=== PATIENT | male | born 1960 | race Caucasian/White ===

== ENCOUNTER → 2019-11-17 13:45 | Outpatient (CLI) | payer OTHER, SELFPAY ==
--- NOTE | 2019-11-17 | DI.RAD.S_ITS ---
PROCEDURE: XR LUMBAR SPINE 2-3V INDICATIONS: Other intervertebral disc degeneration, lumbar region TECHNIQUE: 3 views of the lumbar spine were acquired. COMPARISON: None. FINDINGS: Bones: 5 [id number] vertebrae are present. There is grade I L3 on L4 retrolisthesis and L4 on L5 anterolisthesis. Mild degenerative changes are present including osteophytosis, disc space narrowing, and facet sclerosis. No compression deformities. No suspicious bony lesions. Soft tissues: Overlying bowel gas pattern is normal. No suspicious soft tissue calcifications. IMPRESSION: Spondylolisthesis and mild degenerative change. Dictated by: Mellissa Jackson M.D. on 11/17/2019 at 16:49 Approved by: Mellissa Jackson M.D. on 11/17/2019 at 16:50
== END ==
PROVIDERS: Referring Provider Chiropractor; Visit Provider Chiropractor
DX: M51.36 Other intervertebral disc degeneration, lumbar region (principal); M43.16 Spondylolisthesis, lumbar region; M47.816 Spondylosis without myelopathy or radiculopathy, lumbar region
CPT/HCPCS: 72100

== ENCOUNTER → 2019-12-26 15:07 | Outpatient (CLI) | payer OTHER, MEDICAID, SELFPAY ==
[2019-12-26 16:20] LABS: BUN Creatinine Ratio 18.1 (6-22); Blood Urea Nitrogen 13 mg/dL (9-20); Calcium 9.7 mg/dL (8.4-10.2); Carbon Dioxide 28 mmol/L (22-32); Chloride 104 mmol/L (98-107); Cholesterol 168 mg/dL (140-199); Estimated Glomerular Filt Rate > 60.0 mL/min (>60); Glucose 101 mg/dL (70-100); HDL Cholesterol 40 mg/dL (40-60); HEMOLYSIS < 15 (0-50); LDL Cholesterol Calculated 71 mg/dL (<100); Potassium 4.3 mmol/L (3.4-5.1); Sodium 138 mmol/L (137-145); Triglycerides 285 mg/dL (35-150)
[2019-12-26 16:53] LABS: Prostate Specific Antigen Scrn 1.62 ng/mL (0.1-4.0)
== END ==
PROVIDERS: PCP Student in an Organized Health Care Education/Training Program; Referring Provider Student in an Organized Health Care Education/Training Program; Visit Provider Student in an Organized Health Care Education/Training Program
DX: Z13.220 Encounter for screening for lipoid disorders (principal); Z79.1 Long term (current) use of non-steroidal anti-inflammatories (NSAID); Z12.5 Encounter for screening for malignant neoplasm of prostate
CPT/HCPCS: 36415; 80048; 80061; G0103

== ENCOUNTER → 2020-02-20 15:14 | Outpatient (CLI) | payer OTHER, MEDICAID, SELFPAY ==
[2020-02-22 08:27] LABS: COVID19 Sendout Not Detected (Not Detect)
== END ==
PROVIDERS: PCP Student in an Organized Health Care Education/Training Program; Visit Provider Physician Assistant
DX: Z11.59 Encounter for screening for other viral diseases (principal)
CPT/HCPCS: 87635

== ENCOUNTER 2020-02-23 13:59 | Day surgery (SDC) | payer OTHER, MEDICAID, SELFPAY ==
--- NOTE | 2020-02-23 | PATH_ITS ---
[facility] Accession Number: [id number] . 01 Material submitted: . colon - CECAL POLYP . 01 Clinical history: . SDC . 02 Diagnosis: Cecum, Polyp, Biopsy: Sessile serrated adenoma. MRV 02/27/2020 1042 Local . 02 Electronically signed: . Lissy Colon MD, Pathologist NPI- [id number] . 01 Gross description: . CECAL POLYP: Received in formalin are 2 fragment(s) of turcios, soft tissue measuring 0.1 x 0.1 x 0.1 cm to 0.3 x 0.2 x 0.2 cm submitted entirely in 1 cassette(s) /ROSIO 02/24/2020 0144 Local . 02 Pathologist provided ICD-10: D12.0 . 02 CPT . 181195 Specimen Comment: A duplicate report has been generated due to demographic updates. Performed at: 01 [facility] [address] [facility], [place], [place] [id number] MD Timothy Garcia MD Phone: [phone] Performed at: 02 [facility] [address] [place], [place] [id number] MD Lissy Colon MD Phone: [phone]
[2020-02-23 14:37] VITALS: BP 127/84; PULSE 76; RESP 16; TEMP 36.6; O2SAT 95; BMI 25.5
[2020-02-23] MEDS: LACTATED RINGERS 1,000 ML 200 ML IV (14:45)
--- NOTE | 2020-02-23 15:10 | PM.HP.1 ---
History of Present Illness History of Present Illness Date Patient Seen: 02/23/20 Time Patient Seen: 15:10 Chief complaint: ARC Narrative: The patient presents for colorectal sreening. They have never had any previous examination for such. No personal or family history of colon cancer. On further history denies any recent gastrointestinal symptoms. No nausea, vomiting, abdominal pain, loss of appetite, unexplained weight loss, change in bowel habits, diarrhea, constipation, melena, hematochezia, or bright red blood per rectum. Patient History Medical History Allergies (Chronic ~1969) Chicken pox (Resolved ~1967) Chronic back pain (Chronic ~2019) Facet arthropathy, lumbar (Acute) Fractures (Resolved ~1974) Hearing loss (Chronic) Hemorrhoid (Inactive ~1989) Kidney stones (Inactive ~1989) Migraines (Inactive ~1979) Mumps (Resolved ~1967) Spondylolisthesis at L4-L5 level (Acute) Tinnitus (Chronic ~1989) Vision disorder (Chronic) Surgical History Anesthesia (Resolved) History of oral surgery (Resolved ~1999) History of tonsillectomy and adenoidectomy (Resolved ~1969) Family & Social History Family History Father Cancer Grandfather Cancer Grandfather Diabetes mellitus Grandmother Cancer Social History: household members other Tobacco & Substance use: Tobacco type cigarettes Smoking Status Current every day smoker alcohol intake current alcohol intake frequency a few times a week Substance Use Type does not use Meds Home Medications and Allergies Home Medications Medication Instructions Recorded Confirmed Type mometasone 0.1 % topical cream 1 applictn TOP DAILY #45 gram 12/30/19 02/23/20 Rx sildenafil (pulm.hypertension) 20 20 mg PO BEDTIME PRN #30 tab 12/30/19 02/23/20 Rx mg tablet varenicline 1 mg tablet 1 mg PO BID 84 Days #84 tab 02/10/20 02/23/20 Rx cyclobenzaprine 10 mg tablet 10 mg PO BID PRN #60 tab 02/13/20 02/23/20 Rx celecoxib 200 mg capsule 200 mg PO DAILY #30 cap 02/17/20 02/23/20 Rx Allergies Allergy/AdvReac Type Severity Reaction Status Date / Time No Known Drug Allergies Allergy Verified 02/23/20 14:36 Review of Systems Review of Systems Narrative: A 10 point review of systems is negative except as noted in the HPI Exam Vital Signs (past 8 hours): - 02/23/20 14:37 Temperature 97.8 F Pulse Rate 76 Respiratory Rate 16 Blood Pressure 127/84 Pulse Oximetry 95 Oxygen Delivery Method Room Air Narrative Exam Narrative: General-no acute distress, well nourished adult male HEENT-moist mucous membranes, no scleral icterus Neck-supple, no lymphadenopathy Chest- non labored respirations, clear to auscultation bilaterally Cardiac-regular rate no peripheral edema Abdomen-soft, nontender, non distended Extremities-warm, well perfused Neurological-alert and oriented, no focal deficits Assessment & Plan Assessment and plan (1) Screening for colon cancer: Status: Acute Assessment & Plan narrative: The patient requires colorectal screening and colonoscopy is recommended. Technical details were discussed. Risks, benefits, alternatives explained. Risks including but not limited to myocardial infarction, aspiration, bleeding, pain, missed lesion, incomplete examination, need for further radiographic studies, colonic perforation, and need for major abdominal surgery were discussed. All questions were answered to their satisfaction, and they are in agreement with this plan.
[2020-02-23] MEDS: MIDAZOLAM 5 MG/5 ML VIAL IV (15:22)
[2020-02-23] MEDS: fentaNYL 250 MCG/5 ML INJ IV (15:28)
--- NOTE | 2020-02-23 15:42 | PM.OP.ENDO ---
Operative Date/Time/Diagnoses Date of procedure: 02/23/20 Time of procedure: 15:42 Pre-op diagnosis: Screening colonoscopy Post-op diagnosis: same Procedure & Clinicians Study performed: Colonoscopy Same procedure as scheduled: Yes Indications: 59-year-old male no prior colonoscopy here for routine screening Surgeon: Fredy Qureshi Procedure Notes SCOAP/Timeout: Performed Procedure in detail: Patient placed in left lateral recumbent position. Time out was performed. Procedural sedation was administered with Versed and Fentanyl. Examination began with a thorough inspection of the perianal area there was no evidence of fissures, fistulae, external hemorrhoids or cutaneous malignancy, there is a benign appearing skin tack. The colonoscopy scope was then placed into the rectum the the lumen was insufflated with air. The scope was carefully advanced forward. Ultimately the cecum was intubated and confirmed by identification of the ileocecal valve, the appendiceal orifice and the confluence of the taenia. The scope was then slowly withdrawn examining colon thoroughly in all directions. In the rectum the rectal columns were identified and retroflexion of the scope was performed for inspection of the distal rectum and anal canal. The colonoscopy was notable for the followin. Quality of the preparation-good 2. One benign-appearing polyp less than 1 cm removed in its entirety from the cecum with biopsy forceps hemostasis observed 3. Sigmoid diverticulosis Scope withdrawal time: 9 Sedation minutes: 24 Findings: diverticulosis and polyp Specimen(s): none sent (cecal polyp) Impression: polyp Post-procedure Recommendations: Colonscopy in 5 years Disposition: same day surgery
[2020-02-23 15:43] VITALS: BP 131/84; PULSE 88; RESP 15; TEMP 36.6; O2SAT 95
[2020-02-23 15:48] VITALS: BP 132/93; PULSE 89; RESP 13; O2SAT 96
[2020-02-23 15:53] VITALS: BP 120/84; PULSE 81; RESP 20; O2SAT 96
[2020-02-23 15:57] VITALS: BP 130/95; PULSE 81; RESP 20; TEMP 36.9; O2SAT 96
--- NOTE | 2020-02-23 16:05 | SUR.PHASEII ---
Pt brought over to phase 2 sitting up in bed reading his post op directions, VSS, drinking fluids without problems, denies pain or nausea and states he understands all dc instructions. Attempted to call his friend for ride home but no answer message left
[2020-02-23 16:20] VITALS: BP 128/79; PULSE 76; RESP 16; TEMP 36.6; O2SAT 97
--- NOTE | 2020-02-23 17:00 | SUR.PHASEII ---
Pt dressed and ready to go but still waiting on ride. Ambulating well gait steady, iv out by emilee arvizu and site clear. Taken via [place] out to vending machines and couple things bought to eat by pt. Sitting back in bed eating and drinking waiting for ride.
--- NOTE | 2020-02-23 17:55 | SUR.PHASEII ---
1745-Pt dcd in stable condition to curbside with all d cinstrctions and all belongings and in good spirits
== END 2020-02-23 17:45 | disposition home or self-care (01) ==
PROVIDERS: PCP Student in an Organized Health Care Education/Training Program; Referring Provider Surgery; Visit Provider Surgery
PROC: 0DJD8ZZ Inspection of Lower Intestinal Tract, Via Natural or Artificial Opening Endoscopic (ICD-10-PCS; CPT 45378; principal; 2020-02-23 15:15)
DX: Z12.11 Encounter for screening for malignant neoplasm of colon (principal); K57.30 Diverticulosis of large intestine without perforation or abscess without bleeding; D12.0 Benign neoplasm of cecum
CPT/HCPCS: 45380; 99152; 99153; J2250; J3010

== ENCOUNTER → 2020-03-31 08:01 | Outpatient (CLI) | payer OTHER, MEDICAID, SELFPAY ==
--- NOTE | 2020-03-31 08:02 | DI.MRI.S_ITS ---
PROCEDURE: MR LUMBAR SPINE WO CON INDICATIONS: L3/4 SPONDYLOLISTHESIS TECHNIQUE: Noncontrast sagittal T1 spin echo and T2 fast echo, sagittal STIR, axial T1 and T2 fast spin echo through the lumbar spine. In cases with scoliosis, additional coronal T2 fast spin echo may be performed. COMPARISON: [facility], CR, XR LUMBAR SPINE 2-3V, 11/17/2019, 13:51. FINDINGS: Image quality: Excellent. Alignment and Curvature: Mild degenerative anterolisthesis of L4 on L5 measures 6 mm. The other vertebral bodies are normally aligned. Bone Marrow: Marrow is of normal overall signal. No acute vertebral body compression fractures. Spinal Cord: Conus medullaris terminates at the L1-L2 level. Visualized cord demonstrates normal signal and size. Paraspinous Soft Tissues: No paravertebral masses. T12-L1: No canal stenosis or foraminal stenosis. L1-L2: Mild disc bulge. No canal stenosis or foraminal stenosis. L2-L3: Disc bulge. Mild facet hypertrophy. No canal stenosis or foraminal stenosis. L3-L4: Moderate disc height loss. Disc bulge. Facet and ligament hypertrophy. Mild canal stenosis. Moderate bilateral foraminal stenosis with flattening deformity on the exiting bilateral L3 nerve roots. L4-L5: Severe multifactorial canal stenosis secondary to anterolisthesis of L4 on L5, moderately large diffuse posterior disc bulge, and prominent facet and ligament hypertrophy. There is a medially directed facet joint cyst off the right facet which contributes to the canal stenosis. Moderate bilateral foraminal narrowing with flattening deformity on the exiting bilateral L4 nerve roots. L5-S1: Diffuse disc bulge. Mild canal stenosis. Bilateral facet joint hypertrophy. Moderate left foraminal narrowing with mild flattening deformity on the exiting left L5 nerve root. IMPRESSION: 1. Findings are most significant at L4-L5. There is severe multifactorial canal stenosis. There is also moderate bilateral foraminal narrowing. 2. At L3-L4, there is mild canal stenosis and moderate bilateral foraminal stenosis. 3. At L5-S1 there is mild canal stenosis and moderate left foraminal stenosis. Dictated by: Wilber Thornton M.D. on 04/02/2020 at 8:31 Approved by: Wilber Thornton M.D. on 04/02/2020 at 8:37
== END ==
PROVIDERS: PCP Student in an Organized Health Care Education/Training Program; Referring Provider Physical Medicine & Rehabilitation; Visit Provider Physical Medicine & Rehabilitation
DX: M43.16 Spondylolisthesis, lumbar region (principal); M48.061 Spinal stenosis, lumbar region without neurogenic claudication; M48.07 Spinal stenosis, lumbosacral region
CPT/HCPCS: 72148

== ENCOUNTER → 2020-06-04 13:19 | Outpatient (CLI) | payer OTHER, MEDICAID, SELFPAY ==
[2020-06-04 15:13] LABS: COVID19 -Nasal RAPID Negative (Negative)
== END ==
PROVIDERS: PCP Student in an Organized Health Care Education/Training Program; Visit Provider Physical Medicine & Rehabilitation
DX: Z01.812 Encounter for preprocedural laboratory examination (principal); Z20.822 Contact with and (suspected) exposure to COVID-19
CPT/HCPCS: 87635; C9803

== ENCOUNTER 2020-06-05 12:28 | Outpatient (CLI) | payer OTHER, MEDICAID, SELFPAY ==
[2020-06-05] VITALS (8 sets, daily range): BP systolic 131–151; BP diastolic 60–97; PULSE 82–98; RESP 16–22; TEMP 36.6; O2SAT 97–100
--- NOTE | 2020-06-05 12:30 | DI.RAD.S_ITS ---
PROCEDURE: PAIN L INTERLAMINAR/CAUDAL INJ INDICATIONS: SPONDYLOSIS COMPARISON: [facility], CR, XR LUMBAR SPINE 2-3V, 11/17/2019, 13:51. [facility], MR, MR LUMBAR SPINE WO CON, 03/31/2020, 8:06. FINDINGS: Fluoroscopic spot filming was performed to verify placement of a spinal needle at the L4-L5 level, as labeled on the films. Appropriate location of the needle tip was confirmed by injection of iodinated contrast. IMPRESSION: Intraprocedural examination within normal limits. Dictated by: Neeraj Browning M.D. on 06/05/2020 at 13:24 Approved by: Neeraj Browning M.D. on 06/05/2020 at 13:25
[2020-06-05] MEDS: fentaNYL 100 MCG/2 ML INJ 50 MCG IV (13:16)
[2020-06-05] MEDS: MIDAZOLAM 5 MG/5 ML VIAL IV (13:16)
[2020-06-05] MEDS: BETAMETHASONE 30 MG/5 ML MDV 6 MG INJ (13:21)
[2020-06-05] MEDS: IOPAMIDOL 15 ML VIAL 3 ML INJ (13:21)
[2020-06-05] MEDS: BUPIVACAINE 0.25% (PF) VIAL 2 ML INJ (13:21)
[2020-06-05] MEDS: DEXAMETHASONE 10 MG/ML VIAL 20 MG INJ (13:22)
--- NOTE | 2020-06-05 13:26 | P.PCN_ITS ---
Date/Time/Diagnoses Date of procedure: 06/05/20 Time of procedure: 13:27 Pre-procedure diagnosis: 1. HNP WITH RADICULAR FEATURES, 2. MULTILEVEL CENTRAL STENOSIS, Post-procedure diagnosis: same Procedure Notes Procedure: 1. FLUOROSCOPICALLY GUIDED CONTRAST CONTROLLED INTERLAMINAR EPIDURAL STEROID INJECTION -L4/5 Indications: Chan is referred by Dr. Zacarias for treatment of Bilateral Foraminal Stenosis R>L LE symptoms. Physician: Cooper Peter Total Fluoroscopy time (seconds): 5 Total sedation minutes: 7 Complications: none Procedure in detail & Post-procedure care: FINDINGS Multilevel Central Spinal Stenosis with Nerve Root Compression DESCRIPTION OF PROCEDURE Fluoroscopically guided, contrast-controlled L4/5 translaminar epidural steroid injection. Following review of allergy and review of potential side effects and complications, including, but not necessarily limited to, infection, allergic reaction, local tissue breakdown, temporary as well as permanent nerve injury, paralysis, stroke and possible , the patient indicated that the patient understood and agreed to proceed. An informed consent document was signed by the patient, witnessed by a nurse, and placed in the patient's chart. Additionally, other treatment options including modalities, medications, and physical therapy were reviewed with the patient. After review of previous anaesthesic history and IV conscious sedation the patient was deemed safe to proceed with today?s procedure with IV conscious sedation as ASA class II designation. Safety time-out was performed to confirm patient ID, procedure to be performed and site of procedure. IV sedation was accomplished with a combination of 2mg of Versed and 50mcg of Fentanyl was administered by the RN after DO order, titrated to patient comfort during the course of the procedure while the patient remained responsive to all verbal commands In the prone position, following sterile prep and drape of the lumbar region, the L4/5 translaminar space was identified fluoroscopically. The skin was anesthetized via a 25-gauge, 1.5inch needle with 1% lidocaine solution. At this point, a 22-gauge short bevel spinal needle was atraumatically introduced and advanced under fluoroscopic guidance into the region of the L4/5 translaminar space. Depth was confirmed on lateral view. Radiological data, including multiple fluoroscopic views of the lumbar spine, reveal a spinal needle at the L4/5 translaminar space. Lateral views then show placement of the needle in the epidural space. Subsequent views show contrast material flowing superiorly and inferiorly in the epidural space. No vascular or intrathecal uptake is observed. At this point, using loss of resistance technique with saline and air, the epidural space was entered. This was confirmed following negative aspiration with injection of approximately 1.5cc of Isovue 200, showing excellent epidural flow without vascular or intrathecal uptake. At this point, 1cc of 1% lidocaine solution combined with 3cc or 20mg of dexamethasone and 6mg betamethasone was injected without incident. The patient tolerated the procedure well without signs or symptoms of complic ations prior to transfer to the recovery area continued monitoring without incident. The patient was then transferred to the recovery area where they were observed for an appropriate period of time after the injection. The patient reported a VAS score of 6 prior to the procedure and a post- procedure VAS of 0. POST OP INSTRUCTIONS The patient was provided a Pain Log to continue to record their response to the target-specific procedure prior to follow-up visit with their referring physician. Additionally, specific post-injection care instructions and a contact number to our office were provided if concerns arise regarding possible complications associated with the procedure are suspected.
== END 2020-06-05 13:45 | disposition home or self-care (01) ==
LOC: RAD 12:28
PROVIDERS: PCP Student in an Organized Health Care Education/Training Program; Referring Provider Physical Medicine & Rehabilitation; Visit Provider Physical Medicine & Rehabilitation
DX: M51.16 Intervertebral disc disorders with radiculopathy, lumbar region (principal); M48.061 Spinal stenosis, lumbar region without neurogenic claudication
CPT/HCPCS: 62323; J0702; J1100; J2250; J3010

== ENCOUNTER → 2020-06-20 13:35 | Outpatient (CLI) | payer OTHER, MEDICAID, SELFPAY ==
[2020-06-20 14:19] LABS: Add Manual Diff / Slide Review NO; Basophils Absolute Auto 100 /uL (0-100); Basophils Percent Auto 0.6 % (0-2); Eosinophils Absolute Auto 300 /uL (0-450); Eosinophils Percent Auto 2.9 % (2-4); Hematocrit 48.3 % (41-53); Hemoglobin 16.4 g/dL (13.5-17.5); Lymphocytes Absolute Auto 2600 /uL (1100-4500); Mean Corpuscular HGB Conc 33.9 % (30-36); Mean Corpuscular Hemoglobin 33.2 PG (26-34); Mean Corpuscular Volume 97.8 fL (80-100); Monocytes Absolute Auto 600 /uL (0-900); Monocytes Percent Auto 5.7 % (3-14); Neutrophils Absolute Auto 7300 /uL (1500-7000); Neutrophils Percent Auto 66.8 % (50-75); Platelet Count 223 X10^3/uL (150-400); Red Blood Cell Count 4.94 X10^6/uL (4.5-5.9); Red Cell Distribution Width 12.8 % (11.6-14.8); White Blood Cell Count 10.9 X10^3/uL (4.5-11.0)
[2020-06-20 14:31] LABS: BUN Creatinine Ratio 23.6 (6-22); Blood Urea Nitrogen 17 mg/dL (9-20); Carbon Dioxide 32 mmol/L (22-32); Chloride 100 mmol/L (98-107); Creatine Kinase 142 U/L (55-170); Estimated Glomerular Filt Rate > 60.0 mL/min (>60); Glucose 122 mg/dL (70-100); HEMOLYSIS < 15 (0-50); Potassium 3.6 mmol/L (3.4-5.1); Sodium 138 mmol/L (137-145)
[2020-06-21 18:39] LABS: Scleroderma 70 Antibody < 0.2 AI (0.0-0.9)
[2020-06-22 14:08] LABS: ANA Screen, IFA Negative (.)
[2020-06-23 10:11] LABS: C-Reactive Protein Quant < 0.5 mg/dL (<1.0)
== END ==
PROVIDERS: PCP Student in an Organized Health Care Education/Training Program; Referring Provider Student in an Organized Health Care Education/Training Program; Visit Provider Student in an Organized Health Care Education/Training Program
DX: M25.50 Pain in unspecified joint (principal); M34.9 Systemic sclerosis, unspecified
CPT/HCPCS: 36415; 80048; 82550; 84550; 85025; 86038; 86140; 86235

== ENCOUNTER → 2020-08-07 15:02 | Outpatient (CLI) | payer OTHER, MEDICAID, SELFPAY ==
[2020-08-07 19:50] LABS: COVID19 -Nasal RAPID Negative (Negative)
== END ==
PROVIDERS: PCP Student in an Organized Health Care Education/Training Program; Visit Provider Physical Medicine & Rehabilitation
DX: Z20.822 Contact with and (suspected) exposure to COVID-19 (principal)
CPT/HCPCS: 87635; C9803

== ENCOUNTER 2020-08-09 13:39 | Outpatient (CLI) | payer OTHER, MEDICAID, SELFPAY ==
[2020-08-09] VITALS (8 sets, daily range): BP systolic 112–141; BP diastolic 72–84; PULSE 83–98; RESP 17–23; TEMP 36.1–36.4; O2SAT 95–99
--- NOTE | 2020-08-09 13:45 | DI.RAD.S_ITS ---
PROCEDURE: PAIN L/S TRANSFORAM INJECT RUDDY COMPARISON: [facility], XA, PAIN L INTERLAMINAR/CAUDAL INJ, 06/05/2020, 13:18. INDICATIONS: SPONDYLOSIS FINDINGS: Fluoroscopic spot filming was performed to verify placement of spinal needles on both sides at the L4-L5 level, as labeled on the films. Appropriate location of the needle tips was confirmed by injection of iodinated contrast. IMPRESSION: Intraprocedural examination within normal limits. Dictated by: Neeraj Browning M.D. on 08/09/2020 at 14:02 Approved by: Neeraj Browning M.D. on 08/09/2020 at 14:03
[2020-08-09] MEDS: MIDAZOLAM 5 MG/5 ML VIAL IV (14:11)
[2020-08-09] MEDS: fentaNYL 100 MCG/2 ML INJ 50 MCG IV (14:11)
[2020-08-09] MEDS: IOPAMIDOL 15 ML VIAL 3 ML INJ (14:16)
[2020-08-09] MEDS: BUPIVACAINE 0.25% (PF) VIAL 2 ML INJ (14:17)
[2020-08-09] MEDS: BETAMETHASONE 30 MG/5 ML MDV 6 MG INJ (14:17)
[2020-08-09] MEDS: DEXAMETHASONE 10 MG/ML VIAL 20 MG INJ (14:17)
--- NOTE | 2020-08-09 14:32 | P.PCN_ITS ---
Date/Time/Diagnoses Date of procedure: 08/09/20 Time of procedure: 14:33 Pre-procedure diagnosis: 1. FORAMINAL STENOSIS WITH LE SYMPTOMS Post-procedure diagnosis: same Procedure Notes Procedure: 1. FLUOROSCOPICALLY GUIDED CONTRAST CONTROLLED TRANSFORAMINAL EPIDURAL STEROID INJECTION - BILATERAL L5/S1 TFESI Indications: Chan is referred by Dr. Zacarias for treatment of Foraminal Stenosis with bilateral LE Symptoms Physician: Cooper Peter Total Fluoroscopy time (seconds): 22 Total sedation minutes: 18 Complications: none Procedure in detail & Post-procedure care: FINDINGS Foraminal Nerve Root Compression secondary to disc disease and facet hypertrophy DESCRIPTION OF PROCEDURE Following review of allergy and review of potential side effects and complications, including, but not necessarily limited to, infection, allergic reaction, local tissue breakdown, stroke, temporary or permanent nerve injury, paralysis, and possible , the patient indicated that the patient understood and agreed to proceed. An informed consent document was signed by the patient, witnessed by a nurse, and placed in the patient's chart. Additionally, other treatment options including medications, modalities, and physical therapy were reviewed with the patient. After review of previous anaesthesic history and IV conscious sedation the patient was deemed safe to proceed with today?s procedure with IV conscious sedation as ASA class II designation. Safety time-out was performed to confirm patient ID, procedure to be performed and site of procedure. IV sedation was accomplished with a combination of 2mg of Versed and 50mcg of Fentanyl was administered by the RN after DO order, titrated to patient comfort during the course of the procedure while the patient remained responsive to all verbal commands In the prone position following sterile prep and drape of the lumbar region, the right L5/S1 posterior neuroforamen was identified fluoroscopically. The skin was anesthetized via a 25-gauge 1.5-inch needle with 1% lidocaine solution. At this point, a 25-gauge 3.5-inch spinal needle was atraumatically introduced and advanced under fluoroscopic guidance through the posterior right L5/S1 neuroforamen to approximately the anterior aspect of the canal. Depth was confirmed on lateral view. Following negative aspiration, injection of approximately 1.5cc of Isovue 200 under live fluoroscopy in the AP view confirm ed excellent flow along the nerve root, into the epidural space without vascular or intrathecal uptake observed Radiological data, including multiple fluoroscopic views of the lumbosacral spine, reveal a spinal needle at the right L5/S1 posterior neuroforamen. Subsequent views show flow of contrast material flowing superiorly and inferiorly along the nerve root confirming epidural flow. Subsequently, a test dose of 1.5cc of 1% lidocaine solution was administered and patient was observed for two minutes for signs or symptoms of complications, including abdominal pain, shortness of breath, bilateral upper or lower extremity weakness, nausea and vomiting, prior to steroid injection. At this point, a total of 3cc or 20mg of dexamethasone and 6mg betamethasone was injected without incident. Attention was then refocused to the left L5/S1 level where the identical procedure was replicated. The procedure tolerated the procedure well without signs or symptoms of complications prior to transfer to the recovery area continued monitoring without incident. The patient was then transferred to the recovery area where they were observed for an appropriate time after the injection. The patient reported a VAS score of 7 prior to the procedure and a post-procedure VAS of 0. POST OP INSTRUCTIONS The patient was provided a Pain Log to continue to record their response to the target-specific procedure prior to follow-up visit with their referring physician. Additionally, specific post-injection care instructions and a contact number to our office were provided if concerns arise regarding possible complications associated with the procedure are suspected.
== END 2020-08-09 14:45 | disposition home or self-care (01) ==
LOC: RAD 13:43
PROVIDERS: PCP Student in an Organized Health Care Education/Training Program; Referring Provider Physical Medicine & Rehabilitation; Visit Provider Physical Medicine & Rehabilitation
DX: M48.07 Spinal stenosis, lumbosacral region (principal); M51.17 Intervertebral disc disorders with radiculopathy, lumbosacral region
CPT/HCPCS: 64483; 99152; J0702; J1100; J2250; J3010

== ENCOUNTER → 2024-06-13 10:02 | Outpatient (CLI) | payer OTHER, SELFPAY ==
--- NOTE | 2024-06-13 10:03 | DI.RAD.S_ITS ---
PROCEDURE: XR LUMBAR SPINE MIN 4V INDICATIONS: BACK PAIN TECHNIQUE: 5 views of the lumbar spine were acquired, including bilateral oblique views. COMPARISON: [facility], , XR LUMBAR SPINE 2-3V, 11/17/2019, 13:51. FINDINGS: Bones: 5 nonrib-bearing vertebrae are present. There is 4 mm retrolisthesis of L2 on L3 and L3 on L4. 9 mm anterolisthesis of L4 on L5 is also seen. Degenerative endplate changes, loss of disc height and bilateral facet arthrosis throughout lumbar spine is seen more notably at L3-4 through L5-S1 levels. No vertebral body compression fractures. No suspicious bony lesions. Soft tissues: Overlying bowel gas pattern is normal. No suspicious soft tissue calcifications. Oblique images: No pars defects. Bilateral bony foraminal stenosis at L4-5 and L5-S1 levels are seen. IMPRESSION: 1. Likely degenerative spondylolisthesis at L2-3 through L4-5 levels as above. No acute vertebral body compression fracture. 2. Moderate degenerative disc disease throughout lumbar spine. 3. No gross pars defects. Bilateral bony foraminal stenosis at L4-5 and L5-S1 levels are seen on oblique images. Dictated by: Gibson De Leon M.D. on 06/13/2024 at 10:28 Approved by: Gibson De Leon M.D. on 06/13/2024 at 10:30
== END ==
PROVIDERS: Referring Provider Physical Medicine & Rehabilitation; Visit Provider Physical Medicine & Rehabilitation
DX: M51.369 Other intervertebral disc degeneration, lumbar region without mention of lumbar back pain or lower extremity pain (principal); M43.16 Spondylolisthesis, lumbar region; M47.816 Spondylosis without myelopathy or radiculopathy, lumbar region; M47.817 Spondylosis without myelopathy or radiculopathy, lumbosacral region; M48.061 Spinal stenosis, lumbar region without neurogenic claudication; M48.07 Spinal stenosis, lumbosacral region
CPT/HCPCS: 72110